=== PATIENT | male | born 1995 | race Caucasian/White ===

== ENCOUNTER 2020-12-19 13:35 | Emergency (ER) | payer OTHER ==
--- NOTE | 2020-12-19 14:21 | ED Physician Documentation ---
PD HPI UPPER EXT INJURY - Stated complaint Stated Complaint: RT SHOULDER INJURY - Chief complaint Chief Complaint: Ext Problem - History obtained from History obtained from: Patient - Additonal information Additional information: He was doing drills today and picked up a kettle blount and felt a pull in the right shoulder. Noticed decreased range of motion and moderate pain. No other injuries. Review of Systems Constitutional: reports: Reviewed and negative Eyes: reports: Reviewed and negative Ears: reports: Reviewed and negative Nose: reports: Reviewed and negative Throat: reports: Reviewed and negative Cardiac: reports: Reviewed and negative PD PAST MEDICAL HISTORY - Past Medical History Past Medical History: No - Past Surgical History Past Surgical History: No - Present Medications Home Medications: Ambulatory Orders Medication Instructions Recorded Confirmed HYDROcod/ACETAM 5/325 [[place] 5/325] 1 - 2 tab PO Q6H PRN #10 tablet 12/19/20 Ibuprofen [Motrin] 800 mg PO Q8H PRN #30 tablet 12/19/20 - Allergies Allergies/Adverse Reactions: Allergies Allergy/AdvReac Type Severity Reaction Status Date / Time No Known Drug Allergies Allergy Verified 12/19/20 13:45 - Social History Does the pt smoke?: No Smoking Status: Never smoker Does the pt drink ETOH?: Yes ETOH Use: Beer Does the pt have substance abuse?: No - Immunizations Immunizations are current?: Yes - POLST Patient has POLST: No PD ED PE NORMAL - Vitals Vital signs reviewed: Yes - General General: Alert and oriented X 3, No acute distress - Neck Neck: Supple, no meningeal sign, No bony TTP - Extremities Extremities: Other (He is not tender over the AC joint, there is no deformity. He has severe pain with internal and external rotation of the right shoulder, and mild tenderness over the glenohumeral joint. Positive supraspinatus testing. Abduct to about 30 degrees to no further, does better passively.) - Neuro Neuro: Alert and oriented X 3, Normal speech Results - Vitals Vitals: Vital Signs - 24 hr 12/19/20 12/19/20 13:41 14:31 Temperature 36.3 C L Heart Rate 88 88 Respiratory 16 18 Rate Blood Pressure 121/79 122/65 O2 Saturation 98 100 Oxygen O2 Source Room air - Rads (name of study) Three-view x-ray of the right shoulder is normal Radiology: EMP read contemporaneously PD MEDICAL DECISION MAKING - ED course ED course: 25-year-old gentleman with what sounds like a rotator cuff strain related to exercise earlier today. Discussed home PT and follow-up for same. Departure - Departure Disposition: 01 Home, Self Care Clinical Impression: Strain of rotator cuff Qualifiers: Encounter type: initial encounter Laterality: right Qualified Code(s): S46.011A - Strain of muscle(s) and tendon(s) of the rotator cuff of right shoulder, initial encounter Condition: Good Record reviewed to determine appropriate education?: Yes Instructions: ED Torn Rotator Cuff Prescriptions: Ibuprofen [Motrin] 800 mg PO Q8H PRN #30 tablet PRN Reason: PAIN &/OR FEVER HYDROcod/ACETAM 5/325 [[place] 5/325] 1 - 2 tab PO Q6H PRN #10 tablet PRN Reason: Pain Comments: As discussed, although on the x-ray it seems that your acromioclavicular joint is widened, your exam is more consistent with a rotator cuff strain. [place]. If not better over time to discuss MRI and orthopedic referral. Prescription sent electronically to [facility] in [place]. I am prescribing a short course of narcotic pain medication for you. These are potentially dangerous and addictive medications that should be used carefully. These medications may constipate you. Take an [id number] stool softener (docusate) twice daily with plenty of water while taking these medications. If you go 24 hours without a bowel movement, take [id number] miralax, per package instructions. Do not drink or drive while taking these medications. If you received narcotic or sedating medications while in the emergency department, do not drive for 24 hours. Store this medication in a safe, secure place and out of reach of children. It is a violation of federal law to give or sell this medication to another person or to use in a manner other than prescribed. The ED will not refill narcotic prescriptions, including prescriptions lost or stolen. To dispose of unwanted medications: 1. [facility] [address] in [place] has a medication drop box. They accept prescription medications (in pill form) Tuesday through Tuesday 9:00 a.m. to 5:00 p.m. 2. [facility] accepts prescription medications (in pill form only) for disposal year round. Call for more information. 3. Contact the [facility] for the next [facility] sponsored prescription drug collection event. , [phone], or [phone]; Note that many narcotic pain relievers also contain Tylenol/acetaminophen. Please ensure that your total dose of acetaminophen from all sources does not exceed 3 g (3000 mg) per day. Forms: Activity restrictions Discharge Date/Time: 12/19/20 14:32
--- NOTE | 2020-12-19 14:24 | XRAY Report ---
PROCEDURE: Shoulder 3 View RT INDICATIONS: shoulder injury TECHNIQUE: 3 views of the shoulder were acquired. COMPARISON: None. FINDINGS: Bones: No fractures or dislocations. No suspicious bony lesions. Visualized ribs appear intact. Soft tissues: No suspicious soft tissue calcifications. IMPRESSION: No acute shoulder fracture or dislocation. Reviewed by: Floyd Leonard MD on 12/19/2020 2:23 PM PST Approved by: Floyd Leonard MD on 12/19/2020 2:23 PM [facility] Station ID: [id number]
[2020-12-19 14:32] VITALS: BP 122/65
== END 2020-12-19 14:32 | disposition home or self-care (01) ==
LOC: ED 13:35
DX: S46.011A Strain of muscle(s) and tendon(s) of the rotator cuff of right shoulder, initial encounter (principal); X50.0XXA Overexertion from strenuous movement or load, initial encounter; Y93.B9 Activity, other involving muscle strengthening exercises
CPT/HCPCS: 99283

== ENCOUNTER 2021-02-03 08:00 | Outpatient (CLI) | payer OTHER | END 2021-02-03 23:59 | LOC: LAB.N 08:00 | PROVIDERS: ATTEND Physician Assistant | DX: U07.1 COVID-19 (principal) ==

== ENCOUNTER 2022-05-05 18:19 | Emergency (ER) | payer OTHER ==
[2022-05-05 18:28] VITALS: BP 134/101
--- NOTE | 2022-05-05 18:35 | ED Physician Documentation ---
PD HPI SKIN - Stated complaint Stated Complaint: LT HAND LAC - Chief complaint Chief Complaint: Laceration - Additional information Additional information: 27-year-old male presents with a laceration on the left ring finger after accidentally cutting it with a serrated knife. He washed it and bleeding was controlled prior to arrival. No other injuries.He states his tetanus is up-to-date. PD PAST MEDICAL HISTORY - Past Medical History Past Medical History: No - Past Surgical History Past Surgical History: No - Present Medications Home Medications: Ambulatory Orders Medication Instructions Recorded Confirmed No Known Home Medications 05/05/22 05/05/22 - Allergies Allergies/Adverse Reactions: Allergies Allergy/AdvReac Type Severity Reaction Status Date / Time No Known Drug Allergies Allergy Verified 05/05/22 18:24 - Social History Does the pt smoke?: No Smoking Status: Never smoker Does the pt drink ETOH?: Yes Does the pt have substance abuse?: No - Immunizations Immunizations are current?: Yes - POLST Patient has POLST: No PD ED PE NORMAL - Vitals Vital signs reviewed: Yes - General General: Alert and oriented X 3, No acute distress, Well developed/nourished - Derm Derm: Normal color, Warm and dry, Other (Half centimeter shallow laceration over the dorsal aspect of the left ring finger.No tendon involvement.) - Extremities Extremities: No deformity, Other (Mild tenderness of the left ring finger, it does have normal flexion and extension.No other extremity injuries) Results - Vitals Vitals: Vital Signs - 24 hr 05/05/22 18:25 Temperature 36.7 C Heart Rate 77 Respiratory 16 Rate Blood Pressure 134/101 H O2 Saturation 99 Oxygen O2 Source Room air Procedures - Laceration (location) Finger left Length in cm: 0.5 Wound type: Linear Neurovascular status: Sensory intact, Motor intact, Vascular intact Tendon involvement: Tendon intact Wound preparation: Betadine Skin layer closure: Dermabond Other: Patient tolerated well PD Medical Decision Making - ED course Complexity details: reviewed results ED course: 27-year-old male presented with a left finger injury as described above. He is a shallow laceration on the dorsal aspect of the left ring finger. There is no tendon or nail involvement. The wound was cleaned with normal saline and closed with Dermabond with excellent wound edge approximation. Home care instructions discussed and return precautions reviewed if there are any signs of infection. Patient is up-to-date on tetanus. Departure - Departure Disposition: 01 Home, Self Care Clinical Impression: Laceration Condition: Good Instructions: ED Laceration Ext Skin Glue Comments: Keep wound clean and dry, do not soak or scrub. If there are any signs of infection such as redness, swelling, purulent drainage or other new concerns, return to the ER. Wound should heal in the next 3 to 5 days or so.
== END 2022-05-05 19:01 | disposition home or self-care (01) ==
LOC: ED 18:19
DX: S61.215A Laceration without foreign body of left ring finger without damage to nail, initial encounter (principal); W26.0XXA Contact with knife, initial encounter
CPT/HCPCS: 12001; 99281